=== PATIENT | female | born 1950 | race Caucasian/White ===

== ENCOUNTER → 2025-04-20 03:46 | Outpatient (CLI) | payer MEDICARE, SELFPAY ==
--- NOTE | 2025-04-20 | DI.US_ITS ---
APPROVED REPORT EXAM: Comprehensive 2D, Doppler, and color-flow Echocardiogram Patient Location: Out-Patient Economic Development Manager: Janett Wood RDCS (AE) Indications: Preoperative exam, Primary cardiac murmur Other Information Study Quality: Adequate Conclusion Normal left ventricular wall thickness and chamber size. Ejection fraction is 60%. Wall motion is normal Normal right ventricular size and function Both atria are normal in size There is no structural or hemodynamically significant valvular disease Normal estimated right ventricular systolic pressure 26 mmHg Wall motion Left Ventricle The left ventricle is normal size. The left ventricular systolic function is normal. The left ventricular ejection fraction is within the normal range. There is normal left ventricular wall thickness. There is normal LV segmental wall motion. There is no ventricular septal defect visualized. LVEF is 60%. Right Ventricle The right ventricle is normal size. The right ventricular systolic function is normal. Atria The left atrium size is normal. The right atrium size is normal. The interatrial septum is intact with no evidence for an atrial septal defect. Aortic Valve The aortic valve is normal in structure. Aortic valve is trileaflet. There is no aortic valvular stenosis. Trace aortic regurgitation. Mitral Valve Mild mitral annular calcification. No evidence of mitral valve stenosis. Trace mitral regurgitation. Tricuspid Valve The tricuspid valve is normal in structure. There is no tricuspid valve stenosis. Trace tricuspid regurgitation. The RVSP is 25.7 mmHg. Pulmonic Valve The pulmonary valve is normal in structure. There is no pulmonic valvular stenosis. There is no pulmonic valvular regurgitation. Great Vessels The aortic root is normal in size. The ascending aorta is normal in size. IVC is normal in size and collapses >50% with inspiration. Pericardium There is no pericardial effusion. 2D Dimensions IVSD d PLAX 0.70 cm F: 0.6-1.0 Ao Root d 2.87 cm F: 2.7 - 3.3 LVPW d PLAX 0.70 cm F: 0.6 - 1.0 Ao Asc Diam d 3.23 cm F: 2.3 - 3.1 LVID d PLAX 4.20 cm F: 3.8 - 5.2 LVDs 2.83 cm F: 2.2 - 3.5 LV EF Teichholz 61.1 % FS 32.42 % LV EDV (Teich) 77.7 mL LV ESV (Teich) 30.2 mL M-Mode TAPSE 2.53 cm (M/F) >1.7 Auto EF LV EDV A4C 81.3 mL LV EDV A2C 108.7 mL LV EDV BP 94.8 mL LV ESV A4C 33.7 mL LV ESV A2C 44.7 mL LV ESV BP 39.0 mL LVEF(%) A4C 58.6 % LVEF(%) A2C 58.9 % LVEF(%) BP 58.8 % LV SV A4C 47.6 ml LV SV A2C 64.0 ml LV SV BP 55.8 ml LV CO A4C 2.8 L/min LV CO A2C 3.9 L/min LV CO BP 3.4 L/min HR A4C 59.70 BPM HR A2C 61.31 BPM LV EDV Index (BP) LA Volume LA Length A4C 4.9 cm LA Length A2C LA Area A4C s 16.15 cm2 LA Area A2C s LA Vol A4C A-L 45.46 mL LA Vol A2C A-L LA Vol Biplane A-L LA Vol A4C MOD 40.3 mL LA Vol A2C MOD LA Vol BP MOD RA Volume RA Area A4C 12.8 cm2 RA ESV A4C (A-L) 32.0mL RA Vol/BSA A4C A-L RA Length A4C 4.3 cm RA ESV A4C (MOD) 30.1mL LV Diastology MV E' medial 0.082 (>0.07 m/s) MV E Vmax 0.84 (0.4-1.3 m/s) MV E/E' MED 10.23 (<14) MV A Vmax 0.75 (0.4-1.3 m/s) MV E' lateral 0.134 (>0.1 m/s) E/A Ratio 1.1 MV E/E' LAT 6.26 (<14) MV E' Average 0.108 m/s MV E/E'(average) 7.77 Aortic Valve AoV Vmax 1.56 m/s LVOT Vmax 1.40 m/s AoV Peak Grad 9.8 mmHg LVOT Peak Grad 7.9 mmHg AoV Area (Vmax) 2.65 cm2 LVOT VTI 0.328 m AoV VTI 0.385 m LVOT Mean Grad 4.0 mmHg AoV Mean Itz. 1.10 m/s LVOT SV 96.69 mL AoV Mean Grad 5.5 mmHg LVOT Diam s 1.90 cm AoV Area (VTI) 2.51 cm2 AV Regurg Peak Gr. 9.76 mmHg Velocity Ratio 0.90 Mitral Valve MV DT 251 (160-240 msec) MV Vmax TIPS 0.77 m/s MV Mean Grad 0.9 (<2mmHg) MV VTI 0.301 m Pulmonary Valve PV Vmax 0.82 (0.5-1.5 m/s) RVOT Vmax 0.79 m/s PV Peak Grad 2.7 mmHg RVOT Peak Gr. 2.5 mmHg PV Mean Itz 0.58 m/s RVOT VTI 0.159 m PV Mean Grad 1.5 mmHg RVOT Mean Gr. 1.5 mmHg Tricuspid Valve RA Pressure 3.00 mmHg TR Vmax 2.38 m/s TV S' 0.13 m/s TR Peak Grad 22.6 mmHg RVSP (TR) 25.7 mmHg
== END ==
PROVIDERS: Visit Provider Nurse Practitioner Family
DX: Z01.818 Encounter for other preprocedural examination (principal); R01.1 Cardiac murmur, unspecified
CPT/HCPCS: 93306